=== PATIENT | male | born 1980 | race Caucasian/White ===

== ENCOUNTER 2018-08-14 15:55 | Emergency (ER) | payer OTHER ==
[2018-08-14 16:30] VITALS: BP 147/84
--- NOTE | 2018-08-14 18:39 | UC ---
Knee Pain HPI - HPI Summary HPI Summary: Pt c/o left wrist pain that began today after falling from standing position with left arm extended. earlier today. - History of Current Complaint Chief Complaint: UCUpperExtremity Stated Complaint: W/C LEFT WRIST,ELBOW,KNEE INJURY Time Seen by Provider: 08/14/18 17:22 Hx Obtained From: Patient Onset/Duration: Sudden Onset, Still Present Severity Initially: Moderate Severity Currently: Mild Pain Intensity: 5 Pain Scale Used: 0-10 Numeric Character: Dull, Aching Aggravating Factor(s): Movement Alleviating Factor(s): Rest, Position Associated Signs And Symptoms: Positive: Negative - Risk Factors Septic Arthritis Risk Factor: Negative Gout Risk Factor: Male - Allergies/Home Medications Allergies/Adverse Reactions: Allergies Allergy/AdvReac Type Severity Reaction Status Date / Time Penicillins Allergy Unknown Verified 08/14/18 16:24 Reaction Details HORSES Allergy Severe Anaphylatic Uncoded 08/14/18 16:24 Shock Home Medications: Home Medications Acetaminophen [Tylenol Extra Strength] 500 mg PO ONCE 08/14/18 [History Confirmed 08/14/18] PMH/Surg Hx/FS Hx/Imm Hx Previously Healthy: Yes - Surgical History Surgical History: Yes Surgery Procedure, Year, and Place: oral surgery as child - Family History Known Family History: Positive: Cardiac Disease, Other - positive FMH for contusion - Social History Occupation: Employed Full-time Lives: With Family Alcohol Use: Occasionally Alcohol Amount: none since March 2105 but was occasional Substance Use Type: None Smoking Status (MU): Heavy Every Day Tobacco Smoker Type: Cigarettes Amount Used/How Often: 1/2-1 PPD Have You Smoked in the Last Year: Yes - Immunization History Most Recent Tetanus Shot: UNSURE Review of Systems All Other Systems Reviewed And Are Negative: Yes Constitutional: Positive: Negative Skin: Positive: Negative Eyes: Positive: Negative ENT: Positive: Negative Respiratory: Positive: Negative Cardiovascular: Positive: Negative Gastrointestinal: Positive: Negative Genitourinary: Positive: Negative Motor: Positive: Decreased ROM - pain wth ROM Neurovascular: Positive: Negative Musculoskeletal: Positive: Arthralgia, Myalgia Neurological: Positive: Negative Psychological: Positive: Negative Is Patient Immunocompromised?: No Physical Exam Triage Information Reviewed: Yes Appearance: Well-Appearing Vital Signs: Initial Vital Signs Temp 98.2 F 08/14/18 16:24 Pulse 61 08/14/18 16:24 Resp 15 08/14/18 16:24 BP 147/84 08/14/18 16:24 Pulse Ox 98 08/14/18 16:24 Vital Signs Reviewed: Yes Eye Exam: Normal ENT Exam: Normal Dental Exam: Normal Neck exam: Normal Respiratory: Positive: No respiratory distress Musculoskeletal: Positive: Other: - pain at distal ulna Neurological Exam: Normal Psychological Exam: Normal Skin Exam: Normal Knee Pain Course/Dx - Differential Dx/Diagnosis Differential Diagnosis/HQI/PQRI: Fracture (Closed) Provider Diagnosis: Fracture of pisiform of left wrist Discharge - Sign-Out/Discharge Documenting (check all that apply): Patient Departure All imaging exams completed and their final reports reviewed: Yes - Discharge Plan Condition: Stable Disposition: HOME Patient Education Materials: Swollen Knee Joint (ED), Knee Pain (ED) Referrals: Brandyn Kim MD [Medical Doctor] - If Needed Wanda Welch NP [Primary Care Provider] - If Needed - Billing Disposition and Condition Condition: STABLE Disposition: Home
--- NOTE | 2018-08-14 19:06 | UC ---
Knee Pain HPI - HPI Summary HPI Summary: Pt c/o left forearm, knee pain that began sunday 08/12 after falling from height of 3-5 feet off the back of a truck while at work. Pt is able to bear weight, has full rom in affected joints. - History of Current Complaint Chief Complaint: UCUpperExtremity Stated Complaint: W/C LEFT WRIST,ELBOW,KNEE INJURY Time Seen by Provider: 08/14/18 17:22 Hx Obtained From: Patient Onset/Duration: Sudden Onset, Still Present Severity Initially: Moderate Severity Currently: Mild Pain Intensity: 5 Pain Scale Used: 0-10 Numeric Character: Dull, Aching Aggravating Factor(s): Movement, Weight Bearing, Prolonged Standing, Stairs Alleviating Factor(s): Rest, Position Associated Signs And Symptoms: Positive: Negative, Swelling - left knee Able to Bear Weight: Yes - Risk Factors Septic Arthritis Risk Factor: Negative Gout Risk Factor: Male - Allergies/Home Medications Allergies/Adverse Reactions: Allergies Allergy/AdvReac Type Severity Reaction Status Date / Time Penicillins Allergy Unknown Verified 08/14/18 16:24 Reaction Details HORSES Allergy Severe Anaphylatic Uncoded 08/14/18 16:24 Shock Home Medications: Home Medications Acetaminophen [Tylenol Extra Strength] 500 mg PO ONCE 08/14/18 [History Confirmed 08/14/18] PMH/Surg Hx/FS Hx/Imm Hx Previously Healthy: Yes - Surgical History Surgical History: Yes Surgery Procedure, Year, and Place: oral surgery as child - Family History Known Family History: Positive: Cardiac Disease, Other - positive FMH for contusion - Social History Occupation: Employed Full-time Lives: With Family Alcohol Use: Occasionally Alcohol Amount: none since March 2105 but was occasional Substance Use Type: None Smoking Status (MU): Heavy Every Day Tobacco Smoker Type: Cigarettes Amount Used/How Often: 1/2-1 PPD Have You Smoked in the Last Year: Yes - Immunization History Most Recent Tetanus Shot: UNSURE Review of Systems All Other Systems Reviewed And Are Negative: Yes Constitutional: Positive: Negative Skin: Positive: Negative Eyes: Positive: Negative ENT: Positive: Negative Respiratory: Positive: Negative Cardiovascular: Positive: Negative Gastrointestinal: Positive: Negative Genitourinary: Positive: Negative Motor: Positive: Negative, Other - pain with ROM o floeft knee Neurovascular: Positive: Negative Musculoskeletal: Positive: Arthralgia - left knee and forearm, Myalgia - left forearm and left knee Neurological: Positive: Negative Psychological: Positive: Negative Is Patient Immunocompromised?: No Physical Exam Triage Information Reviewed: Yes Appearance: Well-Appearing Vital Signs: Initial Vital Signs Temp 98.2 F 08/14/18 16:24 Pulse 61 08/14/18 16:24 Resp 15 08/14/18 16:24 BP 147/84 08/14/18 16:24 Pulse Ox 98 08/14/18 16:24 Vital Signs Reviewed: Yes Eye Exam: Normal ENT Exam: Normal Dental Exam: Normal Neck exam: Normal Respiratory: Positive: No respiratory distress Musculoskeletal: Positive: Other: - pain left knee with and medial aspect of left knee, mild swelling Neurological Exam: Normal Psychological Exam: Normal Skin Exam: Normal Diagnostics - Radiology No standard instances Radiology Interpretation Completed By: ED Physician - negative for fracture left knee Knee Pain Course/Dx - Differential Dx/Diagnosis Differential Diagnosis/HQI/PQRI: Fracture (Closed) Provider Diagnosis: Left knee pain, Pain in left forearm Discharge - Sign-Out/Discharge Documenting (check all that apply): Patient Departure All imaging exams completed and their final reports reviewed: No - Discharge Plan Condition: Stable Disposition: HOME Patient Education Materials: Swollen Knee Joint (ED), Knee Pain (ED) Referrals: Brandyn Kim MD [Medical Doctor] - If Needed Wanda Welch NP [Primary Care Provider] - If Needed - Billing Disposition and Condition Condition: STABLE Disposition: Home
== END 2018-08-14 18:27 | disposition home or self-care (01) ==
LOC: UCCORT 15:55
DX: M79.632 Pain in left forearm (principal); M25.562 Pain in left knee; W17.89XA Other fall from one level to another, initial encounter; Y92.89 Other specified places as the place of occurrence of the external cause; Y99.0 Civilian activity done for income or pay; Z88.0 Allergy status to penicillin; F17.210 Nicotine dependence, cigarettes, uncomplicated
CPT/HCPCS: 99211; G0463